=== PATIENT | male | born 1965 | race Caucasian/White ===

== ENCOUNTER 2022-12-14 18:35 | Emergency (ER) | payer BC ==
[2022-12-14 18:39] VITALS: BP 147/73; PULSE 75; RESP 16; TEMP 99; BMI 31.9
[2022-12-14] MEDS ORDERED: LIDOCAINE HCL 1%, 10 MG/ML (20ML VIAL) ONE (19:03)
== END 2022-12-14 20:30 | disposition home or self-care (01) ==
LOC: FER 18:35
DX: S60.454A Superficial foreign body of right ring finger, initial encounter (principal); W45.8XXA Other foreign body or object entering through skin, initial encounter
CPT/HCPCS: 99282-25

== ENCOUNTER 2023-07-02 10:53 | Day surgery (SDC) | payer BC ==
[2023-06-30 11:40] VITALS: BMI 31.9
[2023-07-02] MEDS ORDERED: NEO/POLYMYX B SULF/DEXAMETH OPHTHALMIC 5ML BOTTLE ONE (11:00)
[2023-07-02] MEDS ORDERED: TETRACAINE 0.5% OPHTH SOLN 2 ML BOTTLE ONE (11:00)
[2023-07-02] MEDS ORDERED: LIDOCAINE 1% P/F 10 MG/ML VIAL ONE (11:00)
[2023-07-02] MEDS ORDERED: CARBACHOL 0.01% INTRA-OCULAR 1.5 ML VIAL ONE (11:00)
[2023-07-02] MEDS ORDERED: BSS (NA/CA/MG/K) BALANCED SALT SOLUTION OPHTH SOLN 15 ML BOTTLE ONE (11:00)
[2023-07-02] MEDS: PHENYLEPHRINE 2.5% OPTHALMIC DROP 2ML BOTTLE ONE ×3 (11:10→11:20)
[2023-07-02] MEDS: CIPROFLOXACIN HCL 0.3% OPHTH 2.5ML BOTTLE ONE ×3 (11:10→11:20)
[2023-07-02] MEDS: CYCLOPENTOLATE 2% OPHTH SOLN 2 ML BOTTLE ONE ×3 (11:10→11:20)
[2023-07-02] MEDS: TROPICAMIDE 1% OPHTH SOLN 15 ML BOTTLE ONE ×3 (11:10→11:20)
[2023-07-02] MEDS ORDERED: MIDAZOLAM HCL 2 MG/2 ML SINGLE DOSE VIAL ONE ×2 (12:36→12:41)
[2023-07-02 13:31] VITALS: RESP 16; TEMP 97.9
[2023-07-02 13:33] VITALS: BP 132/76; PULSE 80
== END 2023-07-02 13:40 | disposition home or self-care (01) ==
LOC: FASU 10:53
PROVIDERS: ATTEND Ophthalmology
PROC: 08RJ3JZ Replacement of Right Lens with Synthetic Substitute, Percutaneous Approach (ICD-10-PCS; principal; 2023-07-02 12:42)
DX: H26.8 Other specified cataract (principal)
CPT/HCPCS: 66984; V2632